=== PATIENT | female | born 1945 | race Caucasian/White ===

== ENCOUNTER → 2017-06-12 | Outpatient (CLI) | payer MEDICARE, OTHER ==
[~2017-06-12] MED LIST: FEXO-67 PO; MONT10TA PO; MULT-1335 PO; PREG100C44 PO; [UNRECOGNIZED DRUG - CODE] PO
--- NOTE | 2017-06-13 10:30 | RADIOLOGY IMAGING REPORT ---
FACILITY: [facility] - [place] PATIENT NAME: SOTERO HASSAN : [id number] MR: [id number] V: [id number] EXAM DATE: [id number] ORDERING PHYSICIAN: LEE HONG TECHNOLOGIST: Rose Fernández PROCEDURE:BILATERAL DIGITAL SCREENING MAMMOGRAM WITH CAD ASSISTED INTERPRETATION AND 3D BREAST TOMOSYNTHESIS. COMPARISON:Prior mammograms dated 05/26/16, 06/11/14. INDICATIONS:SCREENING FINDINGS: A small amount of fibroglandular tissue is seen throughout the breasts. The parenchymal pattern has remained stable when allowing for difference in mammographic technique and patient positioning. There is no evidence of malignant appearing mass, malignant appearing calcification or other secondary sign of malignancy in either breast. DIAGNOSTIC CATEGORY 1--NEGATIVE. RECOMMENDATIONS: ROUTINE MAMMOGRAM AND CLINICAL EVALUATION. IMPRESSION: Bi-RADS 1: No significant abnormality is seen. Images were reviewed with R2CAD and 3D breast tomosynthesis. Dictated by: Sigrid Sewell M.D. on 06/12/2017 at 17:09 Transcribed by: LADI on 06/12/2017 at 22:33 Approved by: Sigrid Sewell M.D. on 06/13/2017 at 10:29 [facility]
== END ==
LOC: MAMO 01:25
PROVIDERS: ATTEND Nurse Practitioner Family
DX: Z12.31 Encounter for screening mammogram for malignant neoplasm of breast (principal)
CPT/HCPCS: 77063; 77067

== ENCOUNTER → 2018-06-13 | Outpatient (CLI) | payer MEDICARE, OTHER ==
--- NOTE | 2018-06-13 10:25 | RADIOLOGY IMAGING REPORT ---
[place] [facility] [place] NAME: Sydney Jones : 1945 MR: [id number] V: [id number] EXAM DATE: ORDERING PHYSICIAN: LEE HONG TECHNOLOGIST: [place] [facility] [place] Patient: Sydney Jones : 1945 Visit/Account:[id number] Date of Sevice: 06/13/2018 DEXA Scan Clinical history: Osteopenia. Comparison: DEXA scan from 03/16/2010. HIP: Bone mineral density (BMD) measured in the Left total hip region correlates with a Z-score 0.7 and a T-score of -0.8 which is Normal as defined by the World Health Organization. The corresponding ris k of fracture in the hip is 1-2 times increased compared with a young adult reference population. The total hip value has decrease by five % since the prior study. More than 5% change is considered sig nificant. T score is left femoral neck -0.9 Bone mineral density (BMD) measured in the Femoral Neck region measures 0.918 g/cm2. Hip: Bone mineral density (BMD) measured in the right total hip region correlates with a Z-score 0.4 and a T-score of -1.1 which is osteopenia as defined by the World Health Organization. The correspondin g risk of fracture in the hip is 2-3 times increased compared with a young adult reference population . The total hip value has crease by 3.4 % since the prior study. More than 5% change is considered s ignificant. T score right femoral neck -1.3 Bone mineral density (BMD) measured in the Femoral Neck region measures 0.855 g/cm2. IMPRESSION: Right hip: Osteopenia. There has been a 3.4% decrease in the bone mineral density of the total hip s liseth the previous exam. Femoral neck bone mineral density in the right hip is 0.855 2. Left Hip: Normal. There has been 5% decrease in the bone mineral density of the total hip since the previous exam. 3. Femoral Neck: Bone Mineral Density is 0.918 g/cm2 The next DEXA scan of this patient should include the following sites: Right and left hip. FRAX? WHO Fracture Risk Assessment Tool link: <http://www.shef.ac.uk/FRAX/tool.jsp?locationValue=9> PLEASE NOTE: 1) The World Health Organization defines low BMD as follows: T-score Normal > -1 Osteopenia < -1 and > -2.5 Osteoporosis < -2.5 without fractures Established osteoporosis < -2.5 with fractures 2) In general, you may wish to consider: Diagnosis Treatment Follow-up DEXA Normal BMD Prevention 2-3 years Osteopenia Prevention/therapy 1-2 years Osteoporosis Therapy Yearly 3) Fracture risk estimated from the T-score is more accurate for vertebral fractures (often spontane ous) than for hip fractures. . Report Dictated By: Sigrid Sewell MD at 06/13/2018 10:17 AM Report E-Signed By: Sigrid Sewell MD at 06/13/2018 10:21 AM WSN:[email or web address]
--- NOTE | 2018-06-13 10:45 | RADIOLOGY IMAGING REPORT ---
FACILITY: [facility] PATIENT NAME: Sydney Jones : 1945 MR: [id number] V: [id number] EXAM DATE: ORDERING PHYSICIAN: LEE HONG TECHNOLOGIST: Location: [facility] - [place] Patient: Sydney Jones : 1945 Visit/Account:[id number] Date of Sevice: 06/13/2018 Exam type: HIPS BILATERAL History: Osteoarthritis, bilateral hip pain Comparison: None. Findings: Two views of both hips were submitted. There is mild joint space narrowing at the left hip joint. There is no evidence of acute fracture or dislocation. No lytic or blastic bone lesions are seen. There is mild joint space narrowing involving the right hip although to a lesser extent than the left . No evidence of acute fracture or dislocation, no lytic or blastic bone lesions are seen. Incidentally noted are postsurgical changes from posterior lumbar interbody fusion of the lower lumba r spine IMPRESSION: 1. Mild degenerative changes of both hip joints, left greater than right although no evidence of acu te fracture dislocation, lytic or blastic bone lesion Report Dictated By: Sigrid Sewell MD at 06/13/2018 10:37 AM Report E-Signed By: Sigrid Sewell MD at 06/13/2018 10:41 AM WSN:[email or web address]
--- NOTE | 2018-06-13 14:00 | RADIOLOGY IMAGING REPORT ---
FACILITY: [facility] - [place] PATIENT NAME: SOTERO HASSAN : [id number] MR: [id number] V: [id number] EXAM DATE: ORDERING PHYSICIAN: LEE HONG TECHNOLOGIST: Helen Acosta PROCEDURE:BILATERAL DIGITAL SCREENING MAMMOGRAM WITH CAD ASSISTED INTERPRETATION & 3D TOMOSYNTHESIS COMPARISON:Prior mammograms 06/12/17, 05/26/16, 04/10/15. INDICATIONS:SCREENING FINDINGS: The breasts are almost entirely fatty. The parenchymal pattern has remained stable allowing for difference in mammographic technique & patient positioning. DIAGNOSTIC CATEGORY 1--NEGATIVE. RECOMMENDATIONS: ROUTINE MAMMOGRAM AND CLINICAL EVALUATION. IMPRESSION: BIRADS 1: Negative. No significant abnormality is seen. Dictated by: Sigrid Sewell M.D. on 06/13/2018 at 9:47 Transcribed by: [email or web address] on 06/13/2018 at 9:58 Approved by: Sigrid Sewell M.D. on 06/13/2018 at 13:59 [facility]
== END ==
LOC: MAMO 00:32
PROVIDERS: ATTEND Nurse Practitioner Family
DX: Z12.31 Encounter for screening mammogram for malignant neoplasm of breast (principal); M16.0 Bilateral primary osteoarthritis of hip; M85.88 Other specified disorders of bone density and structure, other site
CPT/HCPCS: 73522; 77063; 77067; 77080